=== PATIENT | male | born 1955 | race Caucasian/White ===

== ENCOUNTER → 2020-04-27 | Outpatient (CLI) | payer BC ==
[2020-04-27 10:56] LABS: African American GFR (CKD) 82.4 (60.0-200.0); Albumin 4.5 g/dL (3.80-4.90); Albumin/Globulin Ratio 1.96 (1.60-3.17); Anion Gap 6.6 mmol/L (4.00-12.00); BUN/Creat Ratio 25.45 Ratio (12.00-20.00); Calcium 9.8 mg/dL (8.7-10.3); Carbon Dioxide 30.4 mmol/L (21.6-31.8); Chol/HDL Ratio 6.24; Globulin 2.3 g/dL (1.6-3.3); Non-African American GFR(CKD) 71.1 (60.0-200.0); Potassium 4.8 mmol/L (3.5-5.5); Total Bilirubin 0.6 mg/dL (0.3-1.2); Total Protein 6.8 g/dL (6.2-8.2)
[2020-04-27 11:24] LABS: Urine Creatinine 55.3 mg/dL
[2020-04-27 14:45] LABS: Hemoglobin A1C 11.2 % (4.0-6.0)
== END | disposition home or self-care (01) ==
LOC: LABWHC1 07:58
PROVIDERS: ATTEND Internal Medicine Endocrinology, Diabetes & Metabolism
DX: E11.65 Type 2 diabetes mellitus with hyperglycemia (principal)
CPT/HCPCS: 36415; 80053; 80061; 82043; 82570; 83036; 84443

== ENCOUNTER → 2020-08-10 | Outpatient (CLI) | payer BC ==
[2020-08-10 19:27] LABS: African American GFR (CKD) 92.4 (60.0-200.0); Albumin 4.2 g/dL (3.80-4.90); Albumin/Globulin Ratio 1.56 (1.60-3.17); Calcium 9.6 mg/dL (8.7-10.3); Chol/HDL Ratio 5.6; Globulin 2.7 g/dL (1.6-3.3); LDL Cholesterol,Calculated 175.8 mg/dL (0.0-131.0); Non-African American GFR(CKD) 79.7 (60.0-200.0); Potassium 5.5 mmol/L (3.5-5.5); Total Bilirubin 1.1 mg/dL (0.3-1.2); Total Protein 6.9 g/dL (6.2-8.2); VLDL Calculation 17.2 mg/dL (5.00-40.00)
[2020-08-10 19:41] LABS: Urine Creatinine 175.2 mg/dL
[2020-08-10 21:18] LABS: Hemoglobin A1C 7.6 % (4.0-6.0)
== END | disposition home or self-care (01) ==
LOC: LABWHC1 07:22
PROVIDERS: ATTEND Internal Medicine Endocrinology, Diabetes & Metabolism
DX: E11.65 Type 2 diabetes mellitus with hyperglycemia (principal)
CPT/HCPCS: 36415; 80053; 80061; 82043; 82570; 83036; 84443

== ENCOUNTER → 2020-12-03 | Outpatient (CLI) | payer BC ==
[2020-12-03 12:49] LABS: African American GFR (CKD) 110.2 (60.0-200.0); Albumin 4.1 g/dL (3.80-4.90); Albumin/Globulin Ratio 1.78 (1.60-3.17); BUN/Creat Ratio 33.75 Ratio (12.00-20.00); Calcium 8.9 mg/dL (8.7-10.3); Chol/HDL Ratio 3.52; Globulin 2.3 g/dL (1.6-3.3); LDL Cholesterol,Calculated 128.4 mg/dL (0.0-131.0); Non-African American GFR(CKD) 95.1 (60.0-200.0); Potassium 4.6 mmol/L (3.5-5.5); Total Bilirubin 0.6 mg/dL (0.2-1.2); Total Protein 6.4 g/dL (6.2-8.2); VLDL Calculation 12.6 mg/dL (5.00-40.00)
[2020-12-03 14:47] LABS: Hemoglobin A1C 7.6 % (4.0-6.0)
[2020-12-03 17:59] LABS: Urine Creatinine 75.5 mg/dL
== END | disposition home or self-care (01) ==
LOC: LABWHC1 07:00
PROVIDERS: ATTEND Internal Medicine Endocrinology, Diabetes & Metabolism
DX: E11.65 Type 2 diabetes mellitus with hyperglycemia (principal)
CPT/HCPCS: 36415; 80053; 80061; 82043; 82570; 83036; 84443

== ENCOUNTER → 2021-10-15 | Outpatient (CLI) | payer BC ==
[2021-10-15 10:56] LABS: African American GFR (CKD) 97.8 (60.0-200.0); Albumin 4.1 g/dL (3.8-4.9); Albumin/Globulin Ratio 1.48 (1.60-3.17); Anion Gap 11.3 mmol/L (10.00-18.00); BUN/Creat Ratio 27.19 Ratio (12.00-20.00); Blood Urea Nitrogen 25.8 mg/dL (9.0-27.0); Calcium 9.3 mg/dL (8.7-10.3); Carbon Dioxide 25.1 mmol/L (20.0-27.5); Globulin 2.8 g/dL (1.6-3.3); HDL Cholesterol 54.2 mg/dL (40.00-60.00); Non-African American GFR(CKD) 84.4 (60.0-200.0); Potassium 4.2 mmol/L (3.5-5.5); Total Bilirubin 0.8 mg/dL (0.30-1.20); Total Protein 6.8 g/dL (6.2-8.2); Triglycerides 35.5 mg/dL (0.00-149.00)
[2021-10-15 11:19] LABS: Chol/HDL Ratio 3.34 Ratio
[2021-10-15 20:55] LABS: Urine Creatinine 93.3 mg/dL (39.0-259.0)
== END | disposition home or self-care (01) ==
LOC: LABWHC1 06:57
PROVIDERS: ATTEND Internal Medicine Endocrinology, Diabetes & Metabolism
DX: E11.65 Type 2 diabetes mellitus with hyperglycemia (principal)
CPT/HCPCS: 36415; 80053; 80061; 82043; 82570; 83036; 83721; 84443

== ENCOUNTER 2022-09-02 12:52 | Emergency (ER) | payer BC ==
[2022-09-02 13:07] VITALS: RESP 20
[2022-09-02] MEDS ORDERED: IBUPROFEN 600 MG TAB PO STA (13:38)
[2022-09-02] MEDS ORDERED: MORPHINE SULFATE 4 MG/ML SYRINGE IM STA (13:38)
[2022-09-02] MEDS ORDERED: BACITRACIN OINT 1 EACH PACKET TOPICAL ONE (13:46)
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
[2022-09-02] MEDS ORDERED: RX INFO: IV CONTRAST WAS GIVEN 1 EACH MISC MISCELLANE PRN (14:52)
[2022-09-02 15:33] LABS: Basophils % (A) 0 %; Eosinophils # (A) 0.1 k/uL (0-0.7); Eosinophils % (A) 1 %; HCT 40.4 % (39.0-53.0); HGB 13.4 gm/dL (13.0-17.5); Lymphocytes # (A) 0.9 k/uL (1.0-4.8); Lymphocytes % (A) 7 %; MCH 29.5 pg (25.0-35.0); MCHC 33.3 g/dL (31.0-37.0); MCV 88.8 fL (80.0-100.0); Mean Platelet Volume 7.1; Monocytes # (A) 0.6 k/uL (0-1.0); Monocytes % (A) 5 %; Neutrophils # (A) 10.7 k/uL (1.3-7.7); Neutrophils % (A) 86 %; Platelet Count 240 k/uL (150-450); RBC 4.55 m/uL (4.30-5.90); RDW 13.2 % (11.5-15.5); WBC 12.4 k/uL (3.8-10.6)
[2022-09-02 15:45] LABS: INR 1.1 (<1.2)
[2022-09-02 15:47] LABS: ALT 28 U/L (4-49); AST 29 U/L (17-59); African American GFR (CKD) >90 (>60 ml/min/1.73 sqM); Albumin 3.9 g/dL (3.5-5.0); Alkaline Phosphatase 103 U/L (38-126); Anion Gap 6 mmol/L; Blood Urea Nitrogen 19 mg/dL (9-20); Calcium 8.9 mg/dL (8.4-10.2); Carbon Dioxide 29 mmol/L (22-30); Chloride 100 mmol/L (98-107); Glucose 163 mg/dL (74-99); Non-African American GFR(CKD) >90 (>60 ml/min/1.73 sqM); Potassium 4.2 mmol/L (3.5-5.1); Sodium 135 mmol/L (137-145); Total Bilirubin 0.8 mg/dL (0.2-1.3); Total Protein 6.6 g/dL (6.3-8.2)
[2022-09-02] MEDS ORDERED: HYDROmorphone 0.5 MG/0.5 ML SYRINGE IVP STA ×2 (15:49→16:46)
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
[2022-09-02] MEDS ORDERED: ACET/COD 300 MG/30 MG STARTER PACK 6 TAB BTL PO STA (17:14)
[2022-09-02 17:55] VITALS: BP 158/87; PULSE 80; TEMP 97.8
== END 2022-09-02 17:45 | disposition home or self-care (01) ==
LOC: EC 12:52
DX: S22.32XA Fracture of one rib, left side, initial encounter for closed fracture (principal); S42.032A Displaced fracture of lateral end of left clavicle, initial encounter for closed fracture; S27.0XXA Traumatic pneumothorax, initial encounter; E11.9 Type 2 diabetes mellitus without complications; I10 Essential (primary) hypertension; Z79.84 Long term (current) use of oral hypoglycemic drugs; Z79.899 Other long term (current) drug therapy; Z87.891 Personal history of nicotine dependence; V28.41XA Electric (assisted) bicycle driver injured in noncollision transport accident in traffic accident, initial encounter; Y92.410 Unspecified street and highway as the place of occurrence of the external cause; Y93.55 Activity, bike riding
CPT/HCPCS: 36415; 80053; 85025; 85610; 73020; 71260; 99285; 96374; 96376; 96372; J2270; J1170; Q9967

== ENCOUNTER → 2022-09-07 | Outpatient (CLI) | payer BC ==
[2022-09-07 11:46] LABS: INR 0.9 (<1.2); Partial Thromboplastin Time 24.9 sec (22.0-30.0); Prothrombin Time 10.1 sec (9.0-12.0)
[2022-09-07 14:48] LABS: HGB 12.4 g/dL (13.0-17.0); MCH 28.8 pg (27.0-32.0); MCHC 31.8 g/dL (32.0-37.0); MCV 90.5 fL (80.0-97.0); Mean Platelet Volume 9.8 fL (9.5-12.2); NRBC Per 100 WBC 0 /100 WBCS (0.0-0.0); Platelet Count 276 X 10*3/uL (140-440); RBC 4.31 X 10*6/uL (4.40-5.60); RDW 13.2 % (11.5-14.5); WBC 5.95 X 10*3/uL (4.50-10.00)
[2022-09-07 15:20] LABS: Albumin 3.7 g/dL (3.8-4.9); Albumin/Globulin Ratio 1.83 (1.60-3.17); Anion Gap 6.5 mmol/L (10.00-18.00); BUN/Creat Ratio 21.61 Ratio (12.00-20.00); Blood Urea Nitrogen 16.4 mg/dL (9.0-27.0); Carbon Dioxide 28.8 mmol/L (20.0-27.5); Non-African American GFR(CKD) 95.8 (60.0-200.0); Total Bilirubin 0.5 mg/dL (0.30-1.20); Total Protein 5.8 g/dL (6.2-8.2)
== END | disposition home or self-care (01) ==
LOC: LABWHC1 10:19
PROVIDERS: ATTEND Internal Medicine
DX: Z01.812 Encounter for preprocedural laboratory examination (principal); I10 Essential (primary) hypertension; E11.9 Type 2 diabetes mellitus without complications; R94.31 Abnormal electrocardiogram [ECG] [EKG]
CPT/HCPCS: 36415; 80053; 83036; 85027; 85610; 85730; 93005

== ENCOUNTER → 2022-09-13 | Day surgery (SDC) | payer BC ==
[2022-09-12 09:02] VITALS: BMI 24.0
[~2022-09-13] MED LIST: DEXAMETHASONE SOD PHOSPHATE 4 MG/ML 1 ML VIAL IVP ONE; DEXAMETHASONE SOD PHOSPHATE 4 MG/ML 1 ML VIAL ONE; GLYCOPYRROLATE 0.2 MG/ML 2 ML VIAL ONE; LACTATED RINGERS 1,000 ML IV ONE; LIDOCAINE 2% INJ 20 MG/ML (2 ML VIAL) ONE; MIDAZOLAM 2 MG/2 ML VIAL IVP ONE; MIDAZOLAM 2 MG/2 ML VIAL ONE; NEOSTIGMINE 1 MG/ML 10 ML VIAL ONE; ONDANSETRON 4 MG/2 ML VIAL ONE; PHENYLEPHRINE-0.9% NACL SYG 1,000 MCG/10 ML SYRINGE ONE; PROPOFOL 10 MG/ML 20 ML VIAL IV ONE; ROCURONIUM 10 MG/ML (5 ML VIAL) IV ONE; ROPIVACAINE 5 MG/ML 30 ML VIAL ONE; SODIUM CHLORIDE 0.9% 100 ML with ceFAZolin 2,000 MG IV ONE; SUCCINYLCHOLINE CHLORIDE 200 MG/10 ML VIAL IV ONE; ePHEDrine 50 MG/ML 1 ML VIAL ONE; fentaNYL (PF) 50 MCG/1 ML VIAL IVP ONE; fentaNYL (PF) 50 MCG/ML 2 ML AMP ONE
[2022-09-13] MEDS: LACTATED RINGERS 1,000 ML IV ONE ×2 (11:00→14:28)
--- NOTE | 2022-09-13 14:19 | XR ---
EXAMINATION TYPE: XR chest 2V DATE OF EXAM: 09/13/2022 COMPARISON: 09/02/2022 TECHNIQUE: PA and lateral views submitted. HISTORY: Pain FINDINGS: The lungs are clear and there is no pneumothorax, pleural effusion, or focal pneumonia. Heart size normal and no overt failure. Osseous structures demonstrate hypertrophic and degenerative changes of the spine. A nipple shadow is seen bilaterally. Hyperinflation suggest COPD. There is an acute displa derrek left clavicular fracture. There is arthropathy of the AC joint. There is to be deformity of the l eft second and third fourth and fifth ribs. There is a deformity of the anterior margin of the left f ourth and fifth ribs. IMPRESSION: 1. Acute multiple left displaced rib fractures and displaced left clavicular fracture with no sizable pneumothorax. 2. COPD..
[2022-09-13 14:32] LABS: Glucose,Whole Blood 122 mg/dL (70-110)
--- NOTE | 2022-09-13 16:38 | P.ANPRN ---
Procedure Note - Anesthesia - Nerve Block Performed Left Interscalene Single Time Out Performed: Yes (1522) Date of Procedure: 09/13/22 Location of Patient: PreOp Indication: Acute Post-Operative Pain, Dx/Pain Location (Left clavicle), Requested by Surgeon Specifically requested for management of pain by DrClarice: Polo Beyer Sedation Type: Sedate with meaningful contact maintained Preparation: Sterile Prep Position: Supine Catheter: None Needle Gauge: 21 Ultrasound used to visualize needle placement: Yes Ultrasound used to observe medication spread: Yes Injectate: 0.5% Ropivacaine (see comment for volume) (30 mL +4 mg of Decadron) Blood Aspirated: No Pain Paresthesia on Injection Noted: No Resistance on Injection: Normal Image Stored and Saved: Yes Events: Uneventful and Well Tolerated
--- NOTE | 2022-09-13 18:08 | FL ---
Intraoperative/procedural fluoroscopic services were provided. Total fluoroscopy time is 7 seconds wi th a total of 4 submitted images to PACS. Please see the operative/procedural note for further detail s. DAP: 0. 2567 mGym2
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
[2022-09-13 18:49] VITALS: RESP 16; TEMP 98.5
[2022-09-13 19:45] VITALS: BP 107/68; PULSE 97
== END | disposition home or self-care (01) ==
LOC: OR 13:33
PROVIDERS: ATTEND Orthopaedic Surgery
DX: S42.022A Displaced fracture of shaft of left clavicle, initial encounter for closed fracture (principal); G89.18 Other acute postprocedural pain; V09.29XA Pedestrian injured in traffic accident involving other motor vehicles, initial encounter; I10 Essential (primary) hypertension; E11.9 Type 2 diabetes mellitus without complications; F10.20 Alcohol dependence, uncomplicated; Z87.891 Personal history of nicotine dependence; Z79.84 Long term (current) use of oral hypoglycemic drugs; Z79.899 Other long term (current) drug therapy
CPT/HCPCS: 23515; 64415; 73000; 71046; C1713; J2250; J0330; J1100; J2710; J2405; J0690; J3010 ×2; J2795; J2370; J2704; J2001

== ENCOUNTER 2022-12-22 11:28 | Inpatient (IN) | payer BC, MEDICARE ==
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
[2022-12-22 13:28] LABS: Basophils % (A) 0 %; Eosinophils # (A) 0.2 k/uL (0-0.7); Eosinophils % (A) 2 %; HCT 40.8 % (39.0-53.0); Lymphocytes # (A) 1.3 k/uL (1.0-4.8); Lymphocytes % (A) 11 %; MCH 29.3 pg (25.0-35.0); MCHC 31.9 g/dL (31.0-37.0); Mean Platelet Volume 6.9; Monocytes # (A) 0.6 k/uL (0-1.0); Monocytes % (A) 5 %; Neutrophils # (A) 9.4 k/uL (1.3-7.7); Neutrophils % (A) 81 %; Platelet Count 323 k/uL (150-450); RBC 4.44 m/uL (4.30-5.90); RDW 12.9 % (11.5-15.5); WBC 11.6 k/uL (3.8-10.6)
[2022-12-22 13:48] LABS: ALT 23 U/L (4-49); AST 24 U/L (17-59); African American GFR (CKD) >90 (>60 ml/min/1.73 sqM); Albumin 3.8 g/dL (3.5-5.0); Alkaline Phosphatase 118 U/L (38-126); Anion Gap 8 mmol/L; Blood Urea Nitrogen 19 mg/dL (9-20); Calcium 9.4 mg/dL (8.4-10.2); Carbon Dioxide 28 mmol/L (22-30); Chloride 100 mmol/L (98-107); Glucose 250 mg/dL (74-99); Non-African American GFR(CKD) >90 (>60 ml/min/1.73 sqM); Potassium 4.3 mmol/L (3.5-5.1); Sodium 136 mmol/L (137-145); Total Bilirubin 0.9 mg/dL (0.2-1.3); Total Protein 6.9 g/dL (6.3-8.2)
--- NOTE | 2022-12-22 14:55 | XR ---
EXAMINATION TYPE: XR foot complete 3 views LT DATE OF EXAM: 12/22/2022 Comparison: None Clinical History: 67-year-old male swelling, discoloration, pain second toe Findings: There is osteolysis involving the distal phalanx of the second toe. Prominent osteopenia and possible additional areas of osteolysis involving the head and distal shaft of the second middle phalanx. Mil d marginal spurring at the first MTP joint. Moderate sized plantar heel spur. Dorsal mid foot degener ative spurring particularly along the second through fourth TMT joints. Prominent dorsal mid to foref oot soft tissue swelling. Vascular calcifications. Impression: Osteolysis involving the middle and distal phalanx of the second toe. Correlate for osteomyelitis.
[2022-12-22] MEDS ORDERED: VANCOMYCIN IV PER PHARMACY 1 EACH MISC MISCELLANE PRN (15:19)
[2022-12-22] MEDS ORDERED: CEFEPIME 2 GM in SODIUM CHLORIDE 0.9% 100 ML IVPB STA (15:20)
[2022-12-22] MEDS ORDERED: VANCOMYCIN 1,500 MG in SODIUM CHLORIDE 0.9% 500 ML 500 ML IVPB STA (15:23)
[2022-12-22] MEDS ORDERED: SODIUM CHLORIDE 0.9% 1,000 ML IV ONE (15:28)
[2022-12-22] MEDS ORDERED: HYDROmorphone 0.5 MG/0.5 ML SYRINGE IVP STA (16:44)
[2022-12-22] MEDS ORDERED: KETOROLAC 15 MG/ML 1 ML VIAL IVP STA (16:45)
[2022-12-22 18:32] LABS: Glucose,Whole Blood 188 mg/dL (70-110)
[2022-12-22] MEDS ORDERED: DEXTROSE 50% SYRINGE 50 ML IVP PRN ×2 (19:50)
[2022-12-22] MEDS: HYDROcodone/APAP 10-325MG 1 EACH TAB PO PRN (20:43)
[2022-12-22] MEDS: INSULIN ASPART (NovoLOG) 100 UNIT/ML VIAL SQ SCH (20:49)
[2022-12-22 20:52] LABS: Glucose,Whole Blood 138 mg/dL (70-110)
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
[2022-12-23] MEDS: CEFEPIME 2 GM in SODIUM CHLORIDE 0.9% 100 ML IVPB SCH ×3 (01:02→17:08)
[2022-12-23 05:27] LABS: African American GFR (CKD) >90 (>60 ml/min/1.73 sqM); Anion Gap 6 mmol/L; Blood Urea Nitrogen 24 mg/dL (9-20); Calcium 8.7 mg/dL (8.4-10.2); Carbon Dioxide 26 mmol/L (22-30); Chloride 104 mmol/L (98-107); Glucose 114 mg/dL (74-99); Non-African American GFR(CKD) >90 (>60 ml/min/1.73 sqM); Potassium 4.7 mmol/L (3.5-5.1); Sodium 136 mmol/L (137-145)
[2022-12-23] MEDS: VANCOMYCIN 1,500 MG in SODIUM CHLORIDE 0.9% 500 ML 500 ML IVPB SCH ×2 (06:30→21:56)
[2022-12-23 07:11] LABS: Glucose,Whole Blood 127 mg/dL (70-110)
[2022-12-23] MEDS: INSULIN ASPART (NovoLOG) 100 UNIT/ML VIAL SQ SCH ×4 (07:32→21:55)
[2022-12-23 08:46] LABS: Basophils # (A) 0.04 X 10*3/uL (0.00-0.10); Basophils % (A) 0.6 %; Eosinophils # (A) 0.44 X 10*3/uL (0.04-0.35); Eosinophils % (A) 6.1 %; HCT 35.7 % (39.6-50.0); HGB 11.7 d/dL (13.0-17.0); Lymphocytes # (A) 1.55 X 10*3/uL (0.90-5.00); Lymphocytes % (A) 21.5 %; MCH 29.3 pg (27.0-32.0); MCHC 32.8 d/dL (32.0-37.0); MCV 89.3 FL (80.0-97.0); Mean Platelet Volume 9.3 FL (9.5-12.2); Monocytes # (A) 0.81 X 10*3/uL (0.20-1.00); Monocytes % (A) 11.2 %; NRBC Per 100 WBC 0 X 10*3/uL (0.00-0.01); Neutrophils # (A) 4.35 X 10*3/uL (1.80-7.70); Neutrophils % (A) 60.2 %; Platelet Count 308 X 10*3/uL (140-440); WBC 7.22 X 10*3/uL (4.50-10.00)
[2022-12-23] MEDS: LOSARTAN 50 MG TAB PO SCH (08:51)
[2022-12-23] MEDS: metFORMIN 500 MG TAB PO SCH (08:51)
[2022-12-23 09:39] LABS: Erythrocyte Sedimentation Rate 26 mm/Hr (0-20)
[2022-12-23 11:46] LABS: Glucose,Whole Blood 106 mg/dL (70-110)
[2022-12-23] MEDS: ALPRAZolam 0.25 MG TAB PO PRN ×2 (12:35→22:07)
[2022-12-23 15:31] VITALS: BMI 24.8
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
--- NOTE | 2022-12-23 16:47 | P.PN ---
Subjective Progress Note Date: 12/23/22 Principal diagnosis: Left second toe osteomyelitis Patient is a 67-year-old male with a past medical history of any for diabetes mellitus and hypertension previous history of smoking patient presenting the hospital with increasing pain and swelling to his left second toe which has been going on for a couple of months with recent worsening patient did have an abnormal x-ray concerning for bony destruction to the middle and distal phalanx concerning for Osteomyelitis. On today's evaluation that is 12/23/2022, the patient remains to be afebrile, the patient is breathing comfortably , the patient denies chest pain and no significant cough, the patient denies nausea and vomiting no abdominal pain and no diarrhea, the patient pain and swelling to the left second toe has decreased in intensity Patient did have a white count of 7.22 creatinine 0.84 sed rate of 26 Objective - Vital Signs Vital signs: Vital Signs Temp 98.3 F 12/23/22 11:51 Pulse 103 H 12/23/22 11:51 Resp 20 12/23/22 11:51 BP 136/73 12/23/22 11:51 Pulse Ox 93 L 12/23/22 11:51 FiO2 Intake & Output 12/22/22 12/23/22 12/23/22 18:59 06:59 18:59 Intake Total 500 Balance 500 Weight 78.471 kg 78.471 kg Intake: Oral 500 Other: Voiding Method Toilet Toilet # Voids 2 - Exam GENERAL DESCRIPTION: An elderly male lying in bed in no distress RESPIRATORY SYSTEM: Unlabored breathing , decreased breath sounds at bases HEART: S1 S2 regular rate and rhythm , ABDOMEN: Soft , no tenderness EXTREMITIES: Left second toe swelling redness has improved no drainage - Labs CBC & Chem 7: 12/23/22 05:03 12/23/22 05:03 Labs: Abnormal Lab Results - Last 24 Hours (Table) 12/22/22 12/22/22 12/22/22 Range/Units 12:55 12:55 18:29 WBC 11.6 H (3.8-10.6) k/uL RBC (4.40-5.60) X 10*6/uL Hgb (13.0-17.0) d/dL Hct (39.6-50.0) % MPV (9.5-12.2) FL Neutrophils # 9.4 H (1.3-7.7) k/uL Eosinophils # (0.04-0.35) X 10*3/uL ESR (0-20) mm/Hr Sodium 136 L (137-145) mmol/L BUN (9-20) mg/dL Glucose 250 H (74-99) mg/dL POC Glucose (mg/dL) 188 H (70-110) mg/dL C-Reactive Protein 3.0 H (<1.0) mg/dL 12/22/22 12/23/22 12/23/22 Range/Units 20:47 05:03 05:03 WBC (3.8-10.6) k/uL RBC 4.00 L (4.40-5.60) X 10*6/uL Hgb 11.7 L (13.0-17.0) d/dL Hct 35.7 L (39.6-50.0) % MPV 9.3 L (9.5-12.2) FL Neutrophils # (1.3-7.7) k/uL Eosinophils # 0.44 H (0.04-0.35) X 10*3/uL ESR 26 H (0-20) mm/Hr Sodium 136 L (137-145) mmol/L BUN 24 H (9-20) mg/dL Glucose 114 H (74-99) mg/dL POC Glucose (mg/dL) 138 H (70-110) mg/dL C-Reactive Protein (<1.0) mg/dL 12/23/22 Range/Units 07:08 WBC (3.8-10.6) k/uL RBC (4.40-5.60) X 10*6/uL Hgb (13.0-17.0) d/dL Hct (39.6-50.0) % MPV (9.5-12.2) FL Neutrophils # (1.3-7.7) k/uL Eosinophils # (0.04-0.35) X 10*3/uL ESR (0-20) mm/Hr Sodium (137-145) mmol/L BUN (9-20) mg/dL Glucose (74-99) mg/dL POC Glucose (mg/dL) 127 H (70-110) mg/dL C-Reactive Protein (<1.0) mg/dL Assessment and Plan (1) Toe osteomyelitis, left Current Visit: Yes Status: Acute Code(s): M86.9 - OSTEOMYELITIS, UNSPECIFIED SNOMED Code(s): 429810025 Plan: 1patient presented to hospital with increasing pain swelling redness and deformity of his left second toe with a previous history of trauma did have abnormal x-ray concerning for osteomyelitis 2Discussed with vascular surgery for debridement and deep culture that'll help determine discharge antibiotics 3-patient to continue with cefepime and vancomycin while waiting for the culture to finalize Dictation was produced using [employer] dictation software. please excuse any grammatical, word or spelling errors. Time with Patient: Less than 30
[2022-12-23 17:07] LABS: Glucose,Whole Blood 138 mg/dL (70-110)
[2022-12-23 20:30] LABS: Glucose,Whole Blood 158 mg/dL (70-110)
[2022-12-24] MEDS: CEFEPIME 2 GM in SODIUM CHLORIDE 0.9% 100 ML IVPB SCH ×4 (01:49→17:46)
--- NOTE | 2022-12-24 05:43 | P.PN ---
Subjective Progress Note Date: 12/23/22 Patient is a 67-year-old male with a known history of hypertension, diabetes type 2 [id number] presents to ER with complaints of swelling and pain in his left second toe and also surrounding redness which is worsening for the past 2 to 3 days. Patient states that he had an injury about a year ago which led to deformity to his left second toe. Pain is sharp 10 out of 10 in severity. Denies any purulent discharge. Patient has been afebrile at home. Denies any subjective fevers. No complaints of chest pain or shortness of breath. No nausea vomiting or abdominal pain or diarrhea. Foot x-ray in the ER showed osteolysis involving the medial and distal phalanx of the second toe. Correlate for osteomyelitis. Laboratory data showed WBC 11.6, hemoglobin 13.0 and platelets 323. Sodium 136, potassium 4.3 chloride 100 bicarb is 28 BUN 19 and creatinine 0.77 and blood sugar 250. CRP 3.0 liver enzymes are not elevated. 12/23/2022 Patient is seen in follow-up today reports pain of the left second toe has gone down in intensity there is no drainage but some swelling left. Patient main tained on antibiotics in the form of cefepime and vancomycin with infectious disease following. Vascular surgery consulted in hopes for deep cultures with debridement and currently pending at this time. Patient is afebrile with no white count and other labs reviewed and within normal limits. Blood sugars controlled and will continue Accu-Cheks before meals and at bedtime and sliding scale. Patient continues to request when he can go home and is having increased anxiety having stay here. Will add low-dose Xanax as needed. Review of systems: Constitutional: No reports of fatigue, fever, or chills Cardiovascular: No reports of chest pain or palpitations Respiratory: No reports of shortness of breath or cough GI: No reports of nausea, vomiting, or diarrhea : No reports of dysuria or retention Neurovascular: No reports of weakness or numbness, reports some left-sided swelling has gone down in no drainage noted All medications have been reviewed PHYSICAL EXAMINATION: Patient is lying in the bed comfortably, no acute distress, awake alert and oriented.. Thin built, elderly appearing male HEENT: Normocephalic. Neck is supple. Pupils reactive. Nostrils clear. Oral cavity is moist. Neck reveals no JVD, carotid bruits, or thyromegaly. CHEST EXAMINATION: Trachea is central. Symmetrical expansion. Lung cherry clear to auscultation and percussion. CARDIAC: Normal S1, S2 with no gallops. No murmurs ABDOMEN: Soft. Bowel sounds present. Nontender. No organomegaly. No abdominal bruits. Extremities: reveal no edema. No clubbing or cyanosis. Swelling of the left second toe with small wound at the tip, no drainage. Redness and swelling has improved significantly on the dorsum with some minimal swelling at the toe Neurologically awake, alert, oriented x3 with well-coordinated movements. No focal deficits noted Skin: No rash Psychiatric: Cooperative. Non-suicidal, Musculoskeletal: No joint swelling or deformity. Normal range of motion. Assessment: Left second toe infection with pain and swelling and surrounding redness/cellulitis. Concerning for osteomyelitis as per foot x-ray. Prior history of injury to the left second toe about a year ago Hyperglycemia with uncontrolled diabetes type 2 Hypertension Prior history of smoking DVT prophylaxis with heparin subcu GI prophylaxis Full code Plan: Patient will be continued on IV antibiotics in the form of vancomycin and cefepime. Infectious disease following recommending vascular surgery consult which was placed in pending at this time for possible debridement with deep tissue cultures to determine discharge antibiotics Continue with pain management. Continue with Accu-Cheks before meals and at bedtime along with sliding scale, hemoglobin A1c is 7.2 Home medications reviewed resumed Follow-up culture reports and await vascular surgery consult Patient is extremely anxious to go home and have added low-dose anxiety medications as needed and discussed with the patient the importance of staying and receiving IV antibiotics and continuing treatment plan. Patient is high risk for leaving AGAINST MEDICAL ADVICE as patient has asked multiple times to go home The impression and plan of care has been dictated by Shu Luz, Nurse Practitioner as directed. Dr. Holley MD I have performed a history and examination and MDM of this patient, discussed the same with the dictator, and agree with the dictator's assessment and plan as written ,documented as a scribe. Based on total visit time, I have performed more than 50% of the visit. Objective - Vital Signs Vital signs: Vital Signs Temp 98.9 F 12/23/22 07:30 Pulse 87 12/23/22 07:30 Resp 20 12/23/22 07:30 BP 105/61 09/15/23 07:30 Pulse Ox 93 L 12/23/22 07:30 FiO2 Intake & Output 12/22/22 12/23/22 12/23/22 18:59 06:59 18:59 Intake Total 500 Balance 500 Weight 78.471 kg Intake: Oral 500 Other: Voiding Method Toilet # Voids 2 - Labs CBC & Chem 7: 12/23/22 05:03 12/23/22 05:03 Labs: Abnormal Lab Results - Last 24 Hours (Table) 12/22/22 12/22/22 12/22/22 Range/Units 12:55 12:55 18:29 WBC 11.6 H (3.8-10.6) k/uL RBC (4.40-5.60) X 10*6/uL Hgb (13.0-17.0) d/dL Hct (39.6-50.0) % MPV (9.5-12.2) FL Neutrophils # 9.4 H (1.3-7.7) k/uL Eosinophils # (0.04-0.35) X 10*3/uL Sodium 136 L (137-145) mmol/L BUN (9-20) mg/dL Glucose 250 H (74-99) mg/dL POC Glucose (mg/dL) 188 H (70-110) mg/dL C-Reactive Protein 3.0 H (<1.0) mg/dL 12/22/22 12/23/22 12/23/22 Range/Units 20:47 05:03 05:03 WBC (3.8-10.6) k/uL RBC 4.00 L (4.40-5.60) X 10*6/uL Hgb 11.7 L (13.0-17.0) d/dL Hct 35.7 L (39.6-50.0) % MPV 9.3 L (9.5-12.2) FL Neutrophils # (1.3-7.7) k/uL Eosinophils # 0.44 H (0.04-0.35) X 10*3/uL Sodium 136 L (137-145) mmol/L BUN 24 H (9-20) mg/dL Glucose 114 H (74-99) mg/dL POC Glucose (mg/dL) 138 H (70-110) mg/dL C-Reactive Protein (<1.0) mg/dL 12/23/22 Range/Units 07:08 WBC (3.8-10.6) k/uL RBC (4.40-5.60) X 10*6/uL Hgb (13.0-17.0) d/dL Hct (39.6-50.0) % MPV (9.5-12.2) FL Neutrophils # (1.3-7.7) k/uL Eosinophils # (0.04-0.35) X 10*3/uL Sodium (137-145) mmol/L BUN (9-20) mg/dL Glucose (74-99) mg/dL POC Glucose (mg/dL) 127 H (70-110) mg/dL C-Reactive Protein (<1.0) mg/dL
[2022-12-24] MEDS: VANCOMYCIN 1,500 MG in SODIUM CHLORIDE 0.9% 500 ML 500 ML IVPB SCH ×2 (06:31→17:46)
[2022-12-24 06:51] LABS: African American GFR (CKD) >90 (>60 ml/min/1.73 sqM); Non-African American GFR(CKD) >90 (>60 ml/min/1.73 sqM)
[2022-12-24 07:43] LABS: Glucose,Whole Blood 136 mg/dL (70-110)
[2022-12-24] MEDS: INSULIN ASPART (NovoLOG) 100 UNIT/ML VIAL SQ SCH ×4 (07:48→19:53)
[2022-12-24] MEDS: LOSARTAN 50 MG TAB PO SCH (08:24)
[2022-12-24] MEDS: metFORMIN 500 MG TAB PO SCH (08:24)
[2022-12-24] MEDS ORDERED: LIDOCAINE 1% INJ 10MG/ML (20 ML MDV) SQ STA (11:59)
[2022-12-24 12:24] LABS: Glucose,Whole Blood 111 mg/dL (70-110)
--- NOTE | 2022-12-24 13:07 | P.PN ---
Subjective Progress Note Date: 12/24/22 Principal diagnosis: Left second toe osteomyelitis Patient is a 67-year-old male with a past medical history of any for diabetes mellitus and hypertension previous history of smoking patient presenting the hospital with increasing pain and swelling to his left second toe which has been going on for a couple of months with recent worsening patient did have an abnormal x-ray concerning for bony destruction to the middle and distal phalanx concerning for Osteomyelitis. On today's evaluation that is 12/24/2022, the patient denies any fever or any chills, the patient is breathing comfortably , the patient denies chest pain and no significant cough, the patient denies nausea and vomiting no abdominal pain and no diarrhea,a, the patient pain and swelling to the left second toe has decreased in intensity, patient has been insisting on going home Patient did have a white count of 7.22 as of 12/23/2022, creatinine is 0.67, blood cultures so far negative Objective - Vital Signs Vital signs: Vital Signs Temp 98.4 F 12/24/22 07:40 Pulse 79 12/24/22 07:40 Resp 18 12/24/22 07:40 BP 119/61 12/24/22 07:40 Pulse Ox 97 12/24/22 07:40 FiO2 Intake & Output 12/23/22 12/24/22 12/24/22 18:59 06:59 18:59 Intake Total 500 Balance 500 Weight 78.471 kg Intake: Oral 500 Other: Voiding Method Toilet Toilet # Voids 2 2 - Exam GENERAL DESCRIPTION: An elderly male lying in bed in no distress RESPIRATORY SYSTEM: Unlabored breathing , decreased breath sounds at bases HEART: S1 S2 regular rate and rhythm , ABDOMEN: Soft , no tenderness EXTREMITIES: Left second toe swelling redness has improved no drainage - Labs CBC & Chem 7: 12/23/22 05:03 12/24/22 05:42 Labs: Abnormal Lab Results - Last 24 Hours (Table) 12/23/22 12/23/22 12/23/22 Range/Units 05:03 17:06 20:20 POC Glucose (mg/dL) 138 H 158 H (70-110) mg/dL Hemoglobin A1c 7.2 H (<=6.0) % 12/24/22 12/24/22 Range/Units 07:41 12:22 POC Glucose (mg/dL) 136 H 111 H (70-110) mg/dL Hemoglobin A1c (<=6.0) % Microbiology - Last 24 Hours (Table) 12/22/22 13:10 Blood Culture - Preliminary Blood 12/22/22 12:55 Blood Culture - Preliminary Blood Assessment and Plan (1) Toe osteomyelitis, left Current Visit: Yes Status: Acute Code(s): M86.9 - OSTEOMYELITIS, UNSPECIFIED SNOMED Code(s): 998634898 Plan: 1patient presented to hospital with increasing pain swelling redness and deformity of his left second toe with a previous history of trauma did have abnormal x-ray concerning for osteomyelitis 2Discussed again with vascular surgery need for debridement and deep cultures that would help determine his discharge antibiotics 3-patient to continue with cefepime and vancomycin while waiting for the culture to finalize and monitor clinical course closely Dictation was produced using [employer] dictation software. please excuse any grammatical, word or spelling errors. Time with Patient: Less than 30
[2022-12-24] MEDS: HYDROcodone/APAP 10-325MG 1 EACH TAB PO PRN (14:29)
--- NOTE | 2022-12-24 15:55 | P.PCN ---
Description of Procedure: Preop diagnoses is left foot second toe involving the distal phalanx there is a scab formation noted with some fluctuation Postop the same measurement post debridement is half CM by half CM by 0.5 cm Procedure left foot was prepped and 1% lidocaine were infiltrated using knife we excise the wound with knife down to separate his tissue some drainage was noted tibial just tissue was removed sent for deep culture aerobic and anaerobic wound was irrigated with saline medihoney gel applied to the wound dressing applied patient are to the procedure well plan is change dressing daily with medihoney gel patient is on antibiotic under care of infectious disease
[2022-12-24 17:32] LABS: Glucose,Whole Blood 115 mg/dL (70-110)
[2022-12-24 19:39] LABS: Glucose,Whole Blood 177 mg/dL (70-110)
[2022-12-24] MEDS: ALPRAZolam 0.25 MG TAB PO PRN (21:19)
[2022-12-25] MEDS: CEFEPIME 2 GM in SODIUM CHLORIDE 0.9% 100 ML IVPB SCH ×3 (00:12→17:33)
[2022-12-25] MEDS: HYDROcodone/APAP 10-325MG 1 EACH TAB PO PRN ×2 (01:35→14:29)
[2022-12-25] MEDS ORDERED: VANCOMYCIN TROUGH DUE 1 EACH MISC MISCELLANE ONE (05:00)
[2022-12-25] MEDS: VANCOMYCIN 1,500 MG in SODIUM CHLORIDE 0.9% 500 ML 500 ML IVPB SCH ×3 (05:31→21:36)
[2022-12-25 06:39] LABS: African American GFR (CKD) >90 (>60 ml/min/1.73 sqM); Anion Gap 4 mmol/L; Blood Urea Nitrogen 21 mg/dL (9-20); Calcium 8.7 mg/dL (8.4-10.2); Carbon Dioxide 25 mmol/L (22-30); Chloride 108 mmol/L (98-107); Glucose 117 mg/dL (74-99); Non-African American GFR(CKD) >90 (>60 ml/min/1.73 sqM); Potassium 4.6 mmol/L (3.5-5.1); Sodium 137 mmol/L (137-145)
[2022-12-25] MEDS: INSULIN ASPART (NovoLOG) 100 UNIT/ML VIAL SQ SCH ×4 (07:01→21:35)
[2022-12-25 07:42] LABS: Glucose,Whole Blood 107 mg/dL (70-110)
[2022-12-25] MEDS: LOSARTAN 50 MG TAB PO SCH (08:29)
[2022-12-25] MEDS: metFORMIN 500 MG TAB PO SCH (08:29)
[2022-12-25 10:26] LABS: Basophils # (A) 0.05 X 10*3/uL (0.00-0.10); Basophils % (A) 0.6 %; Eosinophils # (A) 0.48 X 10*3/uL (0.04-0.35); HGB 12.3 d/dL (13.0-17.0); Lymphocytes # (A) 2.16 X 10*3/uL (0.90-5.00); MCH 28.5 pg (27.0-32.0); MCHC 31.5 d/dL (32.0-37.0); MCV 90.5 FL (80.0-97.0); Mean Platelet Volume 9.6 FL (9.5-12.2); Monocytes # (A) 0.95 X 10*3/uL (0.20-1.00); Monocytes % (A) 11.9 %; NRBC Per 100 WBC 0 X 10*3/uL (0.00-0.01); Neutrophils # (A) 4.34 X 10*3/uL (1.80-7.70); Neutrophils % (A) 54.2 %; Platelet Count 314 X 10*3/uL (140-440); RBC 4.31 X 10*6/uL (4.40-5.60); RDW 12.8 % (11.5-14.5)
--- NOTE | 2022-12-25 11:43 | P.PN ---
Subjective Progress Note Date: 12/25/22 Principal diagnosis: Left second toe osteomyelitis Patient is a 67-year-old male with a past medical history of any for diabetes mellitus and hypertension previous history of smoking patient presenting the hospital with increasing pain and swelling to his left second toe which has been going on for a couple of months with recent worsening patient did have an abnormal x-ray concerning for bony destruction to the middle and distal phalanx concerning for Osteomyelitis. Patient did have a bedside debridement of the left second toe and cultures completed on 12/24/2022 On today's evaluation that is 12/25/2022, the patient remains to be afebrile, the patient is breathing comfortably , the patient denies chest pain or cough , the patient denies nausea or vomiting , patient denies abdominal pain and no diarrhea has been reported, the patient pain and swelling to the left second toe has decreased in intensity, no new symptoms Patient did have a white count of 8.0, creatinine 0.6 0 vancomycin trough of 12.2 blood culture negative Objective - Vital Signs Vital signs: Vital Signs Temp 98.1 F 12/25/22 07:48 Pulse 73 12/25/22 07:48 Resp 16 12/25/22 07:48 BP 131/68 12/25/22 07:48 Pulse Ox 99 12/25/22 07:48 FiO2 Intake & Output 12/24/22 12/25/22 12/25/22 18:59 06:59 18:59 Intake Total 600 475 Balance 600 475 Intake: Intake, IV Titration 600 Amount Cefepime 2 gm In Sodium 100 Chloride 0.9% 100 ml @ 25 mls/hr IVPB Q8HR [facility] Rx# :[id number] Vancomycin 1,500 mg In 500 Sodium Chloride 0.9% 500 ml 500 ml @ 167 mls/hr IVPB Q12H [facility] Rx#: [id number] Oral 475 Other: Voiding Method Toilet # Voids 2 2 - Exam GENERAL DESCRIPTION: An elderly male lying in bed in no distress RESPIRATORY SYSTEM: Unlabored breathing , decreased breath sounds at bases HEART: S1 S2 regular rate and rhythm , ABDOMEN: Soft , no tenderness EXTREMITIES: Left second toe swelling redness has improved no drainage - Labs CBC & Chem 7: 12/25/22 05:25 12/25/22 05:25 Labs: Abnormal Lab Results - Last 24 Hours (Table) 0912/24/22 12/24/22 Range/Units 12:22 17:30 19:36 RBC (4.40-5.60) X 10*6/uL Hgb (13.0-17.0) d/dL Hct (39.6-50.0) % MCHC (32.0-37.0) d/dL Eosinophils # (0.04-0.35) X 10*3/uL Chloride (98-107) mmol/L BUN (9-20) mg/dL Creatinine (0.66-1.25) mg/dL Glucose (74-99) mg/dL POC Glucose (mg/dL) 111 H 115 H 177 H (70-110) mg/dL 12/25/22 12/25/22 Range/Units 05:25 05:25 RBC 4.31 L (4.40-5.60) X 10*6/uL Hgb 12.3 L (13.0-17.0) d/dL Hct 39.0 L (39.6-50.0) % MCHC 31.5 L (32.0-37.0) d/dL Eosinophils # 0.48 H (0.04-0.35) X 10*3/uL Chloride 108 H (98-107) mmol/L BUN 21 H (9-20) mg/dL Creatinine 0.60 L (0.66-1.25) mg/dL Glucose 117 H (74-99) mg/dL POC Glucose (mg/dL) (70-110) mg/dL Microbiology - Last 24 Hours (Table) 12/22/22 13:10 Blood Culture - Preliminary Blood 12/22/22 12:55 Blood Culture - Preliminary Blood Assessment and Plan (1) Toe osteomyelitis, left Current Visit: Yes Status: Acute Code(s): M86.9 - OSTEOMYELITIS, UNSPECIFIED SNOMED Code(s): 195574007 Plan: 1patient presented to hospital with increasing pain swelling redness and deformity of his left second toe with a previous history of trauma did have abnormal x-ray concerning for osteomyelitis 2patient is status post vascular surgery reevaluation along with debridement and deep cultures which are currently pending 3-patient will continue with cefepime and vancomycin while waiting for the culture to finalize to determine his discharge antibiotics Dictation was produced using [employer] dictation software. please excuse any grammatical, word or spelling errors. Time with Patient: Less than 30
[2022-12-25 12:53] LABS: Glucose,Whole Blood 102 mg/dL (70-110)
[2022-12-25 17:24] LABS: Glucose,Whole Blood 143 mg/dL (70-110)
[2022-12-25 20:32] LABS: Glucose,Whole Blood 154 mg/dL (70-110)
[2022-12-25] MEDS: ALPRAZolam 0.25 MG TAB PO PRN (21:34)
[2022-12-26] MEDS: CEFEPIME 2 GM in SODIUM CHLORIDE 0.9% 100 ML IVPB SCH ×3 (01:04→17:43)
--- NOTE | 2022-12-26 03:00 | P.PN ---
Subjective Progress Note Date: 12/24/22 Patient is a 67-year-old male with a known history of hypertension, diabetes type 2 [id number] presents to ER with complaints of swelling and pain in his left second toe and also surrounding redness which is worsening for the past 2 to 3 days. Patient states that he had an injury about a year ago which led to deformity to his left second toe. Pain is sharp 10 out of 10 in severity. Denies any purulent discharge. Patient has been afebrile at home. Denies any subjective fevers. No complaints of chest pain or shortness of breath. No nausea vomiting or abdominal pain or diarrhea. Foot x-ray in the ER showed osteolysis involving the medial and distal phalanx of the second toe. Correlate for osteomyelitis. Laboratory data showed WBC 11.6, hemoglobin 13.0 and platelets 323. Sodium 136, potassium 4.3 chloride 100 bicarb is 28 BUN 19 and creatinine 0.77 and blood sugar 250. CRP 3.0 liver enzymes are not elevated. 12/23/2022 Patient is seen in follow-up today reports pain of the left second toe has gone down in intensity there is no drainage but some swelling left. Patient mainta ined on antibiotics in the form of cefepime and vancomycin with infectious disease following. Vascular surgery consulted in hopes for deep cultures with debridement and currently pending at this time. Patient is afebrile with no white count and other labs reviewed and within normal limits. Blood sugars controlled and will continue Accu-Cheks before meals and at bedtime and sliding scale. Patient continues to request when he can go home and is having increased anxiety having stay here. Will add low-dose Xanax as needed. Review of systems: Constitutional: No reports of fatigue, fever, or chills Cardiovascular: No reports of chest pain or palpitations Respiratory: No reports of shortness of breath or cough GI: No reports of nausea, vomiting, or diarrhea : No reports of dysuria or retention Neurovascular: No reports of weakness or numbness, reports some left-sided swelling has gone down in no drainage noted All medications have been reviewed PHYSICAL EXAMINATION: Patient is lying in the bed comfortably, no acute distress, awake alert and oriented.. Thin built, elderly appearing male HEENT: Normocephalic. Neck is supple. Pupils reactive. Nostrils clear. Oral cavity is moist. Neck reveals no JVD, carotid bruits, or thyromegaly. CHEST EXAMINATION: Trachea is central. Symmetrical expansion. Lung cherry clear to auscultation and percussion. CARDIAC: Normal S1, S2 with no gallops. No murmurs ABDOMEN: Soft. Bowel sounds present. Nontender. No organomegaly. No abdominal bruits. Extremities: reveal no edema. No clubbing or cyanosis. Swelling of the left second toe with small wound at the tip, no drainage. Redness and swelling has improved significantly on the dorsum with some minimal swelling at the toe Neurologically awake, alert, oriented x3 with well-coordinated movements. No focal deficits noted Skin: No rash Psychiatric: Cooperative. Non-suicidal, Musculoskeletal: No joint swelling or deformity. Normal range of motion. Assessment: Left second toe infection with pain and swelling and surrounding redness/cellulitis. Concerning for osteomyelitis as per foot x-ray. Prior history of injury to the left second toe about a year ago Hyperglycemia with uncontrolled diabetes type 2 Hypertension Prior history of smoking DVT prophylaxis with heparin subcu GI prophylaxis Full code Plan: Patient will be continued on IV antibiotics in the form of vancomycin and cefepime. Infectious disease following recommending vascular surgery consult which was placed in pending at this time for possible debridement with deep tissue cultures to determine discharge antibiotics Continue with pain management. Continue with Accu-Cheks before meals and at bedtime along with sliding scale, hemoglobin A1c is 7.2 Home medications reviewed resumed Follow-up culture reports and await vascular surgery consult Patient is extremely anxious to go home and have added low-dose anxiety medications as needed and discussed with the patient the importance of staying and receiving IV antibiotics and continuing treatment plan. Patient is high risk for leaving AGAINST MEDICAL ADVICE as patient has asked multiple times to go home Objective - Vital Signs Vital signs: Vital Signs Temp 98.6 F 12/24/22 14:36 Pulse 78 12/24/22 14:36 Resp 16 12/24/22 14:36 BP 130/74 12/24/22 14:36 Pulse Ox 97 12/24/22 14:36 FiO2 Intake & Output 12/24/22 12/24/22 12/25/22 06:59 18:59 06:59 Intake Total 500 600 Balance 500 600 Intake: Intake, IV Titration 600 Amount Cefepime 2 gm In Sodium 100 Chloride 0.9% 100 ml @ 25 mls/hr IVPB Q8HR [facility] Rx# :[id number] Vancomycin 1,500 mg In 500 Sodium Chloride 0.9% 500 ml 500 ml @ 167 mls/hr IVPB Q12H [facility] Rx#: [id number] Oral 500 Other: Voiding Method Toilet # Voids 2 2 - Labs CBC & Chem 7: 12/25/22 05:25 12/25/22 05:25 Labs: Abnormal Lab Results - Last 24 Hours (Table) 12/23/22 12/23/22 12/24/22 Range/Units 05:03 20:20 07:41 POC Glucose (mg/dL) 158 H 136 H (70-110) mg/dL Hemoglobin A1c 7.2 H (<=6.0) % 12/24/22 12/24/22 Range/Units 12:22 17:30 POC Glucose (mg/dL) 111 H 115 H (70-110) mg/dL Hemoglobin A1c (<=6.0) % Microbiology - Last 24 Hours (Table) 12/22/22 13:10 Blood Culture - Preliminary Blood 12/22/22 12:55 Blood Culture - Preliminary Blood
--- NOTE | 2022-12-26 03:00 | P.PN ---
Subjective Progress Note Date: 12/25/22 Patient is a 67-year-old male with a known history of hypertension, diabetes type 2 [id number] presents to ER with complaints of swelling and pain in his left second toe and also surrounding redness which is worsening for the past 2 to 3 days. Patient states that he had an injury about a year ago which led to deformity to his left second toe. Pain is sharp 10 out of 10 in severity. Denies any purulent discharge. Patient has been afebrile at home. Denies any subjective fevers. No complaints of chest pain or shortness of breath. No nausea vomiting or abdominal pain or diarrhea. Foot x-ray in the ER showed osteolysis involving the medial and distal phalanx of the second toe. Correlate for osteomyelitis. Laboratory data showed WBC 11.6, hemoglobin 13.0 and platelets 323. Sodium 136, potassium 4.3 chloride 100 bicarb is 28 BUN 19 and creatinine 0.77 and blood sugar 250. CRP 3.0 liver enzymes are not elevated. 12/23/2022 Patient is seen in follow-up today reports pain of the left second toe has gone down in intensity there is no drainage but some swelling left. Patient mainta ined on antibiotics in the form of cefepime and vancomycin with infectious disease following. Vascular surgery consulted in hopes for deep cultures with debridement and currently pending at this time. Patient is afebrile with no white count and other labs reviewed and within normal limits. Blood sugars controlled and will continue Accu-Cheks before meals and at bedtime and sliding scale. Patient continues to request when he can go home and is having increased anxiety having stay here. Will add low-dose Xanax as needed. Review of systems: Constitutional: No reports of fatigue, fever, or chills Cardiovascular: No reports of chest pain or palpitations Respiratory: No reports of shortness of breath or cough GI: No reports of nausea, vomiting, or diarrhea : No reports of dysuria or retention Neurovascular: No reports of weakness or numbness, reports some left-sided swelling has gone down in no drainage noted All medications have been reviewed PHYSICAL EXAMINATION: Patient is lying in the bed comfortably, no acute distress, awake alert and oriented.. Thin built, elderly appearing male HEENT: Normocephalic. Neck is supple. Pupils reactive. Nostrils clear. Oral cavity is moist. Neck reveals no JVD, carotid bruits, or thyromegaly. CHEST EXAMINATION: Trachea is central. Symmetrical expansion. Lung cherry clear to auscultation and percussion. CARDIAC: Normal S1, S2 with no gallops. No murmurs ABDOMEN: Soft. Bowel sounds present. Nontender. No organomegaly. No abdominal bruits. Extremities: reveal no edema. No clubbing or cyanosis. Swelling of the left second toe with small wound at the tip, no drainage. Redness and swelling has improved significantly on the dorsum with some minimal swelling at the toe Neurologically awake, alert, oriented x3 with well-coordinated movements. No focal deficits noted Skin: No rash Psychiatric: Cooperative. Non-suicidal, Musculoskeletal: No joint swelling or deformity. Normal range of motion. Assessment: Left second toe infection with pain and swelling and surrounding redness/cellulitis. Concerning for osteomyelitis as per foot x-ray. Prior history of injury to the left second toe about a year ago Hyperglycemia with uncontrolled diabetes type 2 Hypertension Prior history of smoking DVT prophylaxis with heparin subcu GI prophylaxis Full code Plan: Patient will be continued on IV antibiotics in the form of vancomycin and cefepime. Infectious disease following recommending vascular surgery consult which was placed in pending at this time for possible debridement with deep tissue cultures to determine discharge antibiotics Continue with pain management. Continue with Accu-Cheks before meals and at bedtime along with sliding scale, hemoglobin A1c is 7.2 Home medications reviewed resumed Follow-up culture reports and await vascular surgery consult Patient is extremely anxious to go home and have added low-dose anxiety medications as needed and discussed with the patient the importance of staying and receiving IV antibiotics and continuing treatment plan. Patient is high risk for leaving AGAINST MEDICAL ADVICE as patient has asked multiple times to go home Objective - Vital Signs Vital signs: Vital Signs Temp 98.4 F 12/25/22 12:47 Pulse 77 12/25/22 12:47 Resp 16 12/25/22 12:47 BP 138/75 12/25/22 12:47 Pulse Ox 98 12/25/22 12:47 FiO2 Intake & Output 12/25/22 12/25/22 12/26/22 06:59 18:59 06:59 Intake Total 475 700 Balance 475 700 Intake: Intake, IV Titration 700 Amount Cefepime 2 gm In Sodium 200 Chloride 0.9% 100 ml @ 25 mls/hr IVPB Q8HR [facility] Rx# :[id number] Vancomycin 1,500 mg In 500 Sodium Chloride 0.9% 500 ml 500 ml @ 167 mls/hr IVPB Q8H [facility] Rx#: [id number] Oral 475 Other: Voiding Method Toilet # Voids 2 - Labs CBC & Chem 7: 12/25/22 05:25 12/25/22 05:25 Labs: Abnormal Lab Results - Last 24 Hours (Table) 12/25/22 12/25/22 12/25/22 Range/Units 05:25 05:25 17:22 RBC 4.31 L (4.40-5.60) X 10*6/uL Hgb 12.3 L (13.0-17.0) d/dL Hct 39.0 L (39.6-50.0) % MCHC 31.5 L (32.0-37.0) d/dL Eosinophils # 0.48 H (0.04-0.35) X 10*3/uL Chloride 108 H (98-107) mmol/L BUN 21 H (9-20) mg/dL Creatinine 0.60 L (0.66-1.25) mg/dL Glucose 117 H (74-99) mg/dL POC Glucose (mg/dL) 143 H (70-110) mg/dL 12/25/22 Range/Units 20:30 RBC (4.40-5.60) X 10*6/uL Hgb (13.0-17.0) d/dL Hct (39.6-50.0) % MCHC (32.0-37.0) d/dL Eosinophils # (0.04-0.35) X 10*3/uL Chloride (98-107) mmol/L BUN (9-20) mg/dL Creatinine (0.66-1.25) mg/dL Glucose (74-99) mg/dL POC Glucose (mg/dL) 154 H (70-110) mg/dL Microbiology - Last 24 Hours (Table) 12/24/22 15:39 Gram Stain - Preliminary Toe - Left Second 12/24/22 15:49 Gram Stain - Preliminary Toe - Left Second 12/22/22 13:10 Blood Culture - Preliminary Blood 12/22/22 12:55 Blood Culture - Preliminary Blood
[2022-12-26] MEDS: VANCOMYCIN 1,500 MG in SODIUM CHLORIDE 0.9% 500 ML 500 ML IVPB SCH ×3 (06:00→22:02)
[2022-12-26 07:08] LABS: African American GFR (CKD) >90 (>60 ml/min/1.73 sqM); Anion Gap 3 mmol/L; Blood Urea Nitrogen 16 mg/dL (9-20); Calcium 8.8 mg/dL (8.4-10.2); Carbon Dioxide 28 mmol/L (22-30); Chloride 106 mmol/L (98-107); Glucose 139 mg/dL (74-99); Non-African American GFR(CKD) >90 (>60 ml/min/1.73 sqM); Potassium 4.6 mmol/L (3.5-5.1); Sodium 137 mmol/L (137-145)
[2022-12-26] MEDS: INSULIN ASPART (NovoLOG) 100 UNIT/ML VIAL SQ SCH ×4 (08:21→20:57)
[2022-12-26] MEDS: HYDROcodone/APAP 10-325MG 1 EACH TAB PO PRN ×3 (08:23→22:00)
[2022-12-26] MEDS: metFORMIN 500 MG TAB PO SCH (08:23)
[2022-12-26] MEDS: ALPRAZolam 0.25 MG TAB PO PRN ×2 (08:23→22:00)
[2022-12-26] MEDS: LOSARTAN 50 MG TAB PO SCH (08:23)
[2022-12-26 10:51] LABS: Basophils # (A) 0.05 X 10*3/uL (0.00-0.10); Basophils % (A) 0.7 %; Eosinophils # (A) 0.39 X 10*3/uL (0.04-0.35); Eosinophils % (A) 5.1 %; HCT 40.5 % (39.6-50.0); HGB 12.9 d/dL (13.0-17.0); Lymphocytes # (A) 1.47 X 10*3/uL (0.90-5.00); Lymphocytes % (A) 19.2 %; MCH 28.5 pg (27.0-32.0); MCHC 31.9 d/dL (32.0-37.0); MCV 89.6 FL (80.0-97.0); Mean Platelet Volume 9.3 FL (9.5-12.2); Monocytes # (A) 0.69 X 10*3/uL (0.20-1.00); NRBC Per 100 WBC 0 X 10*3/uL (0.00-0.01); Neutrophils # (A) 5.03 X 10*3/uL (1.80-7.70); Neutrophils % (A) 65.7 %; Platelet Count 322 X 10*3/uL (140-440); RBC 4.52 X 10*6/uL (4.40-5.60); RDW 12.7 % (11.5-14.5); WBC 7.65 X 10*3/uL (4.50-10.00)
[2022-12-26 12:09] LABS: Glucose,Whole Blood 160 mg/dL (70-110)
[2022-12-26 15:02] LABS: Prothrombin Time 10.8 sec (9.0-12.0)
[2022-12-26 17:04] LABS: Glucose,Whole Blood 110 mg/dL (70-110)
--- NOTE | 2022-12-26 17:19 | P.PN ---
Subjective Progress Note Date: 12/26/22 Principal diagnosis: Left second toe osteomyelitis Patient is a 67-year-old male with a past medical history of any for diabetes mellitus and hypertension previous history of smoking patient presenting the hospital with increasing pain and swelling to his left second toe which has been going on for a couple of months with recent worsening patient did have an abnormal x-ray concerning for bony destruction to the middle and distal phalanx concerning for Osteomyelitis. Patient did have a bedside debridement of the left second toe and cultures completed on 12/24/2022 On today's evaluation that is 12/26/2022, the patient continues to be afebrile, the patient is breathing comfortably , the patient denies chest pain or cough , the patient denies having any nausea or vomiting ,, no abdominal pain or diarrhea the patient pain and swelling to the left second toe has decreased in intensity, feeling better wants to go home Patient did have a white count of 7.65, creatinine 0.64 vancomycin trough of 12.2 blood culture negative Objective - Vital Signs Vital signs: Vital Signs Temp 98.7 F 12/26/22 07:14 Pulse 87 12/26/22 07:14 Resp 18 12/26/22 07:14 BP 133/79 12/26/22 07:14 Pulse Ox 99 12/26/22 07:14 FiO2 Intake & Output 12/25/22 12/26/22 12/26/22 18:59 06:59 18:59 Intake Total 700 Balance 700 Intake: Intake, IV Titration 700 Amount Cefepime 2 gm In Sodium 200 Chloride 0.9% 100 ml @ 25 mls/hr IVPB Q8HR [facility] Rx# :[id number] Vancomycin 1,500 mg In 500 Sodium Chloride 0.9% 500 ml 500 ml @ 167 mls/hr IVPB Q8H [facility] Rx#: [id number] Other: Voiding Method Toilet # Voids 2 - Exam GENERAL DESCRIPTION: An elderly male lying in bed in no distress RESPIRATORY SYSTEM: Unlabored breathing , decreased breath sounds at bases HEART: S1 S2 regular rate and rhythm , ABDOMEN: Soft , no tenderness EXTREMITIES: Left second toe swelling redness has improved no drainage - Labs CBC & Chem 7: 12/26/22 06:38 12/26/22 06:38 Labs: Abnormal Lab Results - Last 24 Hours (Table) 12/25/22 12/25/22 12/26/22 Range/Units 17:22 20:30 06:38 Hgb (13.0-17.0) d/dL MCHC (32.0-37.0) d/dL MPV (9.5-12.2) FL Eosinophils # (0.04-0.35) X 10*3/uL Creatinine 0.64 L (0.66-1.25) mg/dL Glucose 139 H (74-99) mg/dL POC Glucose (mg/dL) 143 H 154 H (70-110) mg/dL 12/26/22 Range/Units 06:38 Hgb 12.9 L (13.0-17.0) d/dL MCHC 31.9 L (32.0-37.0) d/dL MPV 9.3 L (9.5-12.2) FL Eosinophils # 0.39 H (0.04-0.35) X 10*3/uL Creatinine (0.66-1.25) mg/dL Glucose (74-99) mg/dL POC Glucose (mg/dL) (70-110) mg/dL Microbiology - Last 24 Hours (Table) 12/22/22 13:10 Blood Culture - Preliminary Blood 12/22/22 12:55 Blood Culture - Preliminary Blood 12/24/22 15:39 Gram Stain - Preliminary Toe - Left Second 12/24/22 15:49 Gram Stain - Preliminary Toe - Left Second Assessment and Plan (1) Toe osteomyelitis, left Current Visit: Yes Status: Acute Code(s): M86.9 - OSTEOMYELITIS, UNSPECIFIED SNOMED Code(s): 838561887 Plan: 1patient presented to hospital with increasing pain swelling redness and deformity of his left second toe with a previous history of trauma did have abnormal x-ray concerning for osteomyelitis 2patient is status post vascular surgery reevaluation along with debridement and deep cultures which are currently pending 3-patient to continue with cefepime and vancomycin while waiting for the culture to finalize to determine his discharge antibiotics, PICC line has been ordered case has been discussed with the DIRECTOR [employer] for admitting team Dictation was produced using [employer] dictation software. please excuse any grammatical, word or spelling errors. Time with Patient: Less than 30
[2022-12-26 20:06] LABS: Glucose,Whole Blood 129 mg/dL (70-110)
--- NOTE | 2022-12-26 23:49 | PN ---
PROGRESS NOTE This patient came with swelling and redness and scab formation, left foot second toe. We did the debridement and culture came back as a gram-positive cocci. The patient is on IV antibiotics under the care of Infectious Disease. Today, we have changed the dressing. The redness is less and we used Medihoney gel and this should be changed daily. MMODL / IJN: [id number] /
[2022-12-27] MEDS: CEFEPIME 2 GM in SODIUM CHLORIDE 0.9% 100 ML IVPB SCH ×2 (00:41→08:53)
--- NOTE | 2022-12-27 02:50 | P.PN ---
Subjective Progress Note Date: 12/26/22 Patient is a 67-year-old male with a known history of hypertension, diabetes type 2 [id number] presents to ER with complaints of swelling and pain in his left second toe and also surrounding redness which is worsening for the past 2 to 3 days. Patient states that he had an injury about a year ago which led to deformity to his left second toe. Pain is sharp 10 out of 10 in severity. Denies any purulent discharge. Patient has been afebrile at home. Denies any subjective fevers. No complaints of chest pain or shortness of breath. No nausea vomiting or abdominal pain or diarrhea. Foot x-ray in the ER showed osteolysis involving the medial and distal phalanx of the second toe. Correlate for osteomyelitis. Laboratory data showed WBC 11.6, hemoglobin 13.0 and platelets 323. Sodium 136, potassium 4.3 chloride 100 bicarb is 28 BUN 19 and creatinine 0.77 and blood sugar 250. CRP 3.0 liver enzymes are not elevated. 12/23/2022 Patient is seen in follow-up today reports pain of the left second toe has gone down in intensity there is no drainage but some swelling left. Patient main tained on antibiotics in the form of cefepime and vancomycin with infectious disease following. Vascular surgery consulted in hopes for deep cultures with debridement and currently pending at this time. Patient is afebrile with no white count and other labs reviewed and within normal limits. Blood sugars controlled and will continue Accu-Cheks before meals and at bedtime and sliding scale. Patient continues to request when he can go home and is having increased anxiety having stay here. Will add low-dose Xanax as needed. 12/26/2022 Patient is seen in follow-up today with vascular surgery and infectious disease following maintained on antibiotics. Patient is status post debridement of the left second toe with vascular surgery with deep tissue cultures obtained. Awaiting finalized cultures to determine discharge antibiotics. Discussed with infectious disease and will plan for PICC line and discuss further with social work about discharge planning and IV antibiotics to verify comfort as well. Patient to continue local wound care and vascular surgery to redress the surgical dressing today. Patient is afebrile report chest pain or shortness of breath. Patient tolerating diet with no reported nausea or vomiting. Patient is asking when he can go home. Review of systems: Constitutional: No reports of fatigue, fever, or chills Cardiovascular: No reports of chest pain or palpitations Respiratory: No reports of shortness of breath or cough GI: No reports of nausea, vomiting, or diarrhea : No reports of dysuria or retention Neurovascular: No reports of weakness or numbness, reports some left-sided swelling has gone down with no drainage noted All medications have been reviewed PHYSICAL EXAMINATION: Patient is lying in the bed, awake alert and oriented.. Thin built, elderly appearing male HEENT: Normocephalic. Neck is supple. Pupils reactive. Nostrils clear. Oral cavity is moist. Neck reveals no JVD, carotid bruits, or thyromegaly. CHEST EXAMINATION: Trachea is central. Symmetrical expansion. Lung cherry clear to auscultation and percussion. CARDIAC: Normal S1, S2 with no gallops. No murmurs ABDOMEN: Soft. Bowel sounds present. Nontender. No organomegaly. No abdominal bruits. Extremities: reveal no edema. No clubbing or cyanosis. Swelling of the left second toe with small wound at the tip, no drainage. Status post incision and drainage and surgical dressing is dry and intact, outer dorsum of the left foot currently covered with surgical dressing Neurologically awake, alert, oriented x3 with well-coordinated movements. No focal deficits noted Skin: No rash Psychiatric: Cooperative. Non-suicidal Musculoskeletal: No joint swelling or deformity. Normal range of motion. Assessment: Left second toe infection with pain and swelling and surrounding redness/cellulitis. Concerning for osteomyelitis as per foot x-ray. Status post incision and drainage of the left second toe with deep tissue cultures obtained Prior history of injury to the left second toe about a year ago Hyperglycemia with uncontrolled diabetes type 2 Hypertension Prior history of smoking DVT prophylaxis with heparin subcu GI prophylaxis Full code Plan: Patient will be continued on IV antibiotics with Infectious disease following Vascular surgery has evaluated the patient and scheduled to replace dressing as patient is status post incision and drainage of the left second toe with deep tissues obtained and sent for cultures. Currently pending at this time Will obtain PICC line and awaiting finalized cultures per ID recommendations and will follow-up with social work and discharge planning to verify coverage of antibiotics Continue with pain management. Continue with Accu-Cheks before meals and at bedtime along with sliding scale, hemoglobin A1c is 7.2 Home medications reviewed resumed Due to multiple complex medical issues, prognosis is guarded Possible discharge next 24-48 hours The impression and plan of care has been dictated by Shu Luz, Nurse Practitioner as directed. MD Dejon I have performed a history and examination and MDM of this patient, discussed the same with the dictator, and agree with the dictator's assessment and plan as written ,documented as a scribe. Based on total visit time, I have performed more than 50% of the visit. Objective - Vital Signs Vital signs: Vital Signs Temp 98.7 F 12/26/22 12:00 Pulse 98 12/26/22 12:00 Resp 18 12/26/22 12:00 BP 113/68 12/26/22 12:00 Pulse Ox 98 12/26/22 12:00 FiO2 Intake & Output 12/25/22 12/26/22 12/26/22 18:59 06:59 18:59 Intake Total 700 Balance 700 Intake: Intake, IV Titration 700 Amount Cefepime 2 gm In Sodium 200 Chloride 0.9% 100 ml @ 25 mls/hr IVPB Q8HR [facility] Rx# :[id number] Vancomycin 1,500 mg In 500 Sodium Chloride 0.9% 500 ml 500 ml @ 167 mls/hr IVPB Q8H [facility] Rx#: [id number] Other: Voiding Method Toilet # Voids 2 - Labs CBC & Chem 7: 12/26/22 06:38 12/26/22 06:38 Labs: Abnormal Lab Results - Last 24 Hours (Table) 12/25/22 12/25/22 12/26/22 Range/Units 17:22 20:30 06:38 Hgb (13.0-17.0) d/dL MCHC (32.0-37.0) d/dL MPV (9.5-12.2) FL Eosinophils # (0.04-0.35) X 10*3/uL Creatinine 0.64 L (0.66-1.25) mg/dL Glucose 139 H (74-99) mg/dL POC Glucose (mg/dL) 143 H 154 H (70-110) mg/dL 12/26/22 12/26/22 Range/Units 06:38 12:00 Hgb 12.9 L (13.0-17.0) d/dL MCHC 31.9 L (32.0-37.0) d/dL MPV 9.3 L (9.5-12.2) FL Eosinophils # 0.39 H (0.04-0.35) X 10*3/uL Creatinine (0.66-1.25) mg/dL Glucose (74-99) mg/dL POC Glucose (mg/dL) 160 H (70-110) mg/dL Microbiology - Last 24 Hours (Table) 12/22/22 13:10 Blood Culture - Preliminary Blood 12/22/22 12:55 Blood Culture - Preliminary Blood 12/24/22 15:39 Gram Stain - Preliminary Toe - Left Second 12/24/22 15:49 Gram Stain - Preliminary Toe - Left Second
[2022-12-27] MEDS ORDERED: VANCOMYCIN TROUGH DUE 1 EACH MISC MISCELLANE ONE (05:00)
[2022-12-27] MEDS: VANCOMYCIN 1,500 MG in SODIUM CHLORIDE 0.9% 500 ML 500 ML IVPB SCH ×2 (06:29→18:45)
[2022-12-27 06:42] LABS: African American GFR (CKD) >90 (>60 ml/min/1.73 sqM); Non-African American GFR(CKD) >90 (>60 ml/min/1.73 sqM)
[2022-12-27 07:23] LABS: Glucose,Whole Blood 111 mg/dL (70-110)
[2022-12-27] MEDS: INSULIN ASPART (NovoLOG) 100 UNIT/ML VIAL SQ SCH ×4 (08:12→21:13)
[2022-12-27] MEDS: metFORMIN 500 MG TAB PO SCH (08:53)
[2022-12-27] MEDS: LOSARTAN 50 MG TAB PO SCH (08:54)
[2022-12-27 11:53] LABS: Glucose,Whole Blood 109 mg/dL (70-110)
[2022-12-27 16:56] LABS: Glucose,Whole Blood 127 mg/dL (70-110)
[2022-12-27 20:22] LABS: Glucose,Whole Blood 198 mg/dL (70-110)
[2022-12-27] MEDS: HYDROcodone/APAP 10-325MG 1 EACH TAB PO PRN (21:12)
--- NOTE | 2022-12-27 22:57 | P.PN ---
Subjective Progress Note Date: 12/27/22 Principal diagnosis: Left second toe osteomyelitis Patient is a 67-year-old male with a past medical history of any for diabetes mellitus and hypertension previous history of smoking patient presenting the hospital with increasing pain and swelling to his left second toe which has been going on for a couple of months with recent worsening patient did have an abnormal x-ray concerning for bony destruction to the middle and distal phalanx concerning for Osteomyelitis. Patient did have a bedside debridement of the left second toe and cultures completed on 12/24/2022 On today's evaluation that is 12/27/2022, the patient denies having any fever or any chills, the patient is breathing comfortably, the patient denies having any chest pain shortness of breath or cough , Pt denies nausea vomiting no abdominal pain or diarrhea, the patient denies pain to his left second toe overall swelling redness has improved patient is feeling better and insisting on going home. Patient creatinine 0.66 local culture with coagulase-negative staph. Objective - Vital Signs Vital signs: Vital Signs Temp 98.6 F 12/27/22 07:18 Pulse 77 12/27/22 07:18 Resp 18 12/27/22 07:18 BP 120/69 12/27/22 07:18 Pulse Ox 98 12/27/22 07:18 FiO2 Intake & Output 12/26/22 12/27/22 12/27/22 18:59 06:59 18:59 Intake Total 1200 Balance 1200 Intake: Intake, IV Titration 1200 Amount Cefepime 2 gm In Sodium 200 Chloride 0.9% 100 ml @ 25 mls/hr IVPB Q8HR MONICA Rx# :[id number] Vancomycin 1,500 mg In 1000 Sodium Chloride 0.9% 500 ml 500 ml @ 167 mls/hr IVPB Q8H MONICA Rx#: [id number] Other: Voiding Method Toilet Toilet # Voids 3 3 - Exam GENERAL DESCRIPTION: An elderly male lying in bed in no distress RESPIRATORY SYSTEM: Unlabored breathing , decreased breath sounds at bases HEART: S1 S2 regular rate and rhythm , ABDOMEN: Soft , no tenderness EXTREMITIES: Left second toe swelling redness has improved no drainage - Labs CBC & Chem 7: 12/26/22 06:38 12/27/22 06:17 Labs: Abnormal Lab Results - Last 24 Hours (Table) 12/26/22 12/26/2212/26/23 Range/Units 06:38 12:00 20:05 Hgb 12.9 L (13.0-17.0) d/dL MCHC 31.9 L (32.0-37.0) d/dL MPV 9.3 L (9.5-12.2) FL Eosinophils # 0.39 H (0.04-0.35) X 10*3/uL POC Glucose (mg/dL) 160 H 129 H (70-110) mg/dL 12/27/22 Range/Units 07:21 Hgb (13.0-17.0) d/dL MCHC (32.0-37.0) d/dL MPV (9.5-12.2) FL Eosinophils # (0.04-0.35) X 10*3/uL POC Glucose (mg/dL) 111 H (70-110) mg/dL Microbiology - Last 24 Hours (Table) 12/24/22 15:49 Gram Stain - Preliminary Toe - Left Second Tissue Culture - Preliminary Coagulase Negative Staph 12/24/22 15:39 Gram Stain - Preliminary Toe - Left Second Wound Culture - Preliminary Coagulase Negative Staph Assessment and Plan (1) Toe osteomyelitis, left Current Visit: Yes Status: Acute Code(s): M86.9 - OSTEOMYELITIS, UNSPECIFIED SNOMED Code(s): 461510289 Plan: 1patient presented to hospital with increasing pain swelling redness and deformity of his left second toe with a previous history of trauma did have abnormal x-ray concerning for osteomyelitis 2patient is status post vascular surgery reevaluation along with debridement and deep cultures which are currently Growing coagulase-negative staph. 3we will place a PICC line patient was initially reluctant however after the detailed discussion he did agreed for it plan is for vancomycin x6-week discontinue cefepime was the patient get the PICC line he will be able to go home as outpatient antibiotic has been arranged for the patient and the close outpatient follow-up multiple questions concern answered Dictation was produced using [employer] software. please excuse any grammatical, word or spelling errors.
[2022-12-28 02:23] VITALS: RESP 16
--- NOTE | 2022-12-28 05:32 | P.PN ---
Subjective Progress Note Date: 12/27/22 Patient is a 67-year-old male with a known history of hypertension, diabetes type 2 [id number] presents to ER with complaints of swelling and pain in his left second toe and also surrounding redness which is worsening for the past 2 to 3 days. Patient states that he had an injury about a year ago which led to deformity to his left second toe. Pain is sharp 10 out of 10 in severity. Denies any purulent discharge. Patient has been afebrile at home. Denies any subjective fevers. No complaints of chest pain or shortness of breath. No nausea vomiting or abdominal pain or diarrhea. Foot x-ray in the ER showed osteolysis involving the medial and distal phalanx of the second toe. Correlate for osteomyelitis. Laboratory data showed WBC 11.6, hemoglobin 13.0 and platelets 323. Sodium 136, potassium 4.3 chloride 100 bicarb is 28 BUN 19 and creatinine 0.77 and blood sugar 250. CRP 3.0 liver enzymes are not elevated. 12/23/2022 Patient is seen in follow-up today reports pain of the left second toe has gone down in intensity there is no drainage but some swelling left. Patient main tained on antibiotics in the form of cefepime and vancomycin with infectious disease following. Vascular surgery consulted in hopes for deep cultures with debridement and currently pending at this time. Patient is afebrile with no white count and other labs reviewed and within normal limits. Blood sugars controlled and will continue Accu-Cheks before meals and at bedtime and sliding scale. Patient continues to request when he can go home and is having increased anxiety having stay here. Will add low-dose Xanax as needed. 12/26/2022 Patient is seen in follow-up today with vascular surgery and infectious disease following maintained on antibiotics. Patient is status post debridement of the left second toe with vascular surgery with deep tissue cultures obtained. Awaiting finalized cultures to determine discharge antibiotics. Discussed with infectious disease and will plan for PICC line and discuss further with social work about discharge planning and IV antibiotics to verify comfort as well. Patient to continue local wound care and vascular surgery to redress the surgical dressing today. Patient is afebrile report chest pain or shortness of breath. Patient tolerating diet with no reported nausea or vomiting. Patient is asking when he can go home. 12/27/2022 Patient is seen in follow-up this morning followed by infectious disease along with vascular surgery. Patient scheduled for PICC line and initially was reluctant although discuss further with infectious disease and is now agreeable as patient will require IV antibiotics for 6 weeks on discharge as there were concerns with osteomyelitis of the left foot. Outpatient antibiotics to be arranged and social work is following. Patient is afebrile with no reports of chest pain or shortness of breath. Patient is tolerating diet and denies any nausea or vomiting. Patient is extremely anxious to go home although awaiting cultures. Discussed with [facility] [facility] and cultures are not available until sometime later this evening. Review of systems: Constitutional: No reports of fatigue, fever, or chills Cardiovascular: No reports of chest pain or palpitations Respiratory: No reports of shortness of breath or cough GI: No reports of nausea, vomiting, or diarrhea : No reports of dysuria or retention Neurovascular: No reports of weakness or numbness, reports some left-sided foot swelling has gone down with no drainage noted All medications have been reviewed PHYSICAL EXAMINATION: Patient is lying in the bed, awake alert and oriented.. Thin built, elderly appearing male HEENT: Normocephalic. Neck is supple. Pupils reactive. Nostrils clear. Oral cavity is moist. Neck reveals no JVD, carotid bruits, or thyromegaly. CHEST EXAMINATION: Trachea is central. Symmetrical expansion. Lung cherry clear to auscultation and percussion. CARDIAC: Normal S1, S2 with no gallops. No murmurs ABDOMEN: Soft. Bowel sounds present. Nontender. No organomegaly. No abdominal bruits. Extremities: reveal no edema. No clubbing or cyanosis. Swelling of the left second toe with small wound at the tip, no drainage. Status post incision and drainage and surgical dressing is dry and intact, outer dorsum of the left foot currently covered with surgical dressing Neurologically awake, alert, oriented x3 with well-coordinated movements. No focal deficits noted Skin: No rash Psychiatric: Cooperative. Non-suicidal Musculoskeletal: No joint swelling or deformity. Normal range of motion. Assessment: Left second toe infection with pain and swelling and surrounding redness/cellulitis. Concerning for osteomyelitis as per foot x-ray. Status post incision and drainage of the left second toe with deep tissue cultures obtained Prior history of injury to the left second toe about a year ago Hyperglycemia with uncontrolled diabetes type 2 Hypertension Prior history of smoking DVT prophylaxis with heparin subcu GI prophylaxis Full code Plan: Patient will be continued on IV antibiotics with Infectious disease following. Plan is for PICC line patient will require 6 weeks of IV antibiotics. Patient initially reluctant to receive PICC line also after discussion with infectious disease patient is now willing and will be continued on 6 weeks of vancomycin. Social work following reaching for outpatient antibiotics. Nursing staff later reported there was an emergent case and lab in [facility] [place] unable to perform PICC line today and will be placed in the a[facility] in [place] And cultures will not be available until sometime later this evening. We'll follow-up for sensitivities Continue with pain management. Continue with Accu-Cheks before meals and at bedtime along with sliding scale, hemoglobin A1c is 7.2 Home medications reviewed resumed Due to multiple complex medical issues, prognosis is guarded Possible discharge next 24 hours The impression and plan of care has been dictated by Shu Luz, Nurse Practitioner as directed. MD Dejon I have performed a history and examination and MDM of this patient, discussed the same with the dictator, and agree with the dictator's assessment and plan as written ,documented as a scribe. Based on total visit time, I have performed more than 50% of the visit. Objective - Vital Signs Vital signs: Vital Signs Temp 98.7 F 12/28/22 01:13 Pulse 72 12/28/22 01:13 Resp 16 12/28/22 01:13 BP 127/63 12/28/22 01:13 Pulse Ox 99 12/28/22 01:13 FiO2 Intake & Output 12/27/22 12/27/22 12/28/22 06:59 18:59 06:59 Other: Voiding Method Toilet Toilet Toilet # Voids 3 2 - Labs CBC & Chem 7: 12/26/22 06:38 12/27/22 06:17 Labs: Abnormal Lab Results - Last 24 Hours (Table) 12/27/22 12/27/22 12/27/22 Range/Units 07:21 16:55 20:20 POC Glucose (mg/dL) 111 H 127 H 198 H (70-110) mg/dL Microbiology - Last 24 Hours (Table) 12/22/22 13:10 Blood Culture - Final Blood 12/22/22 12:55 Blood Culture - Final Blood
[2022-12-28 05:41] LABS: African American GFR (CKD) >90 (>60 ml/min/1.73 sqM); Non-African American GFR(CKD) >90 (>60 ml/min/1.73 sqM)
[2022-12-28] MEDS: VANCOMYCIN 1,500 MG in SODIUM CHLORIDE 0.9% 500 ML 500 ML IVPB SCH (06:02)
[2022-12-28 07:31] LABS: Glucose,Whole Blood 102 mg/dL (70-110)
[2022-12-28] MEDS: INSULIN ASPART (NovoLOG) 100 UNIT/ML VIAL SQ SCH (07:40)
[2022-12-28 08:00] VITALS: BP 134/64; PULSE 70; TEMP 98.6
[2022-12-28] MEDS ORDERED: LIDOCAINE 1% INJ 10MG/ML (20 ML MDV) SQ ONE (08:25)
[2022-12-28] MEDS: LOSARTAN 50 MG TAB PO SCH (08:51)
[2022-12-28] MEDS: metFORMIN 500 MG TAB PO SCH (08:51)
--- NOTE | 2022-12-28 09:19 | IR ---
PICC LINE PLACEMENT: HISTORY: Infection requiring long-term antibiotic therapy PROCEDURE: Ultrasound and fluoroscopic guidance of PICC line placement. COMPLICATIONS: None ANESTHESIA: 1. 1% Lidocaine locally. FINDINGS/TECHNIQUE: The procedure was explained to the patient. The risks, complications, benefits and alternatives were discussed and any questions were answered. Informed consent was obtained. The patient was placed supine on the fluoroscopic table and prepped and draped in the usual sterile fash ion. Utilizing a 21 gauge needle and sonographic and fluoroscopic guidance, access in the left basi lic vein was achieved and there is placement of a 0.018 guidewire. The vein is patent. A 4-F sheath was placed over the guidewire. The guidewire and dilator were removed and a 4-F. PICC line was plac ed through the sheath with the tip at the level of the SVC. The sheath was removed, the catheter was flushed and sutured into position. The patient was stable throughout the procedure and remained sta ble upon discharge from the Department of Radiology. The vein puncture was patent under ultrasound. A leroy scale image was obtained to document patency of the vein punctured. All elements of the maximal barrier technique were utilized. FLUOROSCOPY TIME: DAP 0.4943Gy cm2 IMPRESSION: Successful PICC line placement under ultrasound and fluoroscopic guidance.
[2022-12-28] MEDS ORDERED: DAPTOmycin 500 MG in SODIUM CHLORIDE 0.9% 50 ML IVPB SCH (11:00)
--- NOTE | 2022-12-29 10:38 | P.DS ---
Providers Date of admission: 12/22/22 15:29 Expected date of discharge: 12/28/22 Attending physician: Francy Babb Consults: 12/22/22 15:28 Consult Physician Urgent Consulting Provider: Matthew Pardo Consult Reason/Comments: Osteomyelitis, cellulitis left foot Do you want consulting provider notified?: Yes 12/22/22 23:26 Consult Physician Routine Consulting Provider: Juan Jose Almeida Consult Reason/Comments: left 2nd toe OM Do you want consulting provider notified?: Yes, Notify in am Primary care physician: Stated None Hospital Course: Final diagnosis Left second toe infection with pain and swelling and surrounding redness/cellulitis. Concerning for osteomyelitis as per foot x-ray. Status post incision and drainage of the left second toe with deep tissue cultures. cultures finalized with Staphylococcus epidermidis Prior history of injury to the left second toe about a year ago Hyperglycemia with uncontrolled diabetes type 2 Hypertension Prior history of smoking DVT prophylaxis with heparin subcu GI prophylaxis Full code Discharge disposition Patient is being discharged in a stable condition with guarded prognosis to home. Patient will follow-up with Dr. Mart Stephens to establish in the outpatient setting upon discharge. Patient is to continue with IV antibiotics and close outpatient follow-up with infectious disease Dr. Pardo as scheduled. Total time taken is greater than 35 minutes. Hospital course This is a 67-year-old male who was recently admitted with left second toe pain and infection with swelling concerning for osteomyelitis on x-ray. Patient evaluated and monitored closely with infectious disease and vascular surgery following status post debridement. Cultures of the debridement show Staphylococcus epidermidis and blood cultures are negative. patient was scheduled to receive a PICC line yesterday although staffing was unavailable due to emergent unforeseen circumstances and patient did receive a PICC line today and will be scheduled on outpatient IV antibiotics with infectious disease following closely. Patient was given resources on discharge as well for primary care providers to establish with. Patient has been cleared by consultations for discharge today. Please refer to other consultation notes for further HPI. Currently no reports of chest pain, shortness of breath, or palpitations. Patient is afebrile. No reports of nausea or vomiting and patient is tolerating diet. Patient will be discharged home today. Physical exam: Gen: This is a 67-year-old male who is awake, alert and oriented 3, thin built, well-developed HEENT: Head is atraumatic, normocephalic. Pupils equal, round. Sclerae is anicteric. NECK: Supple. No JVD. No lymphadenopathy. No thyromegaly. LUNGS: Clear to auscultation. No wheezes or rhonchi. No intercostal retractions. HEART: Regular rate and rhythm. No murmur. ABDOMEN: Soft. Bowel sounds are present. No masses. No tenderness. EXTREMITIES: No pedal edema. No calf tenderness. NEUROLOGICAL: Patient is awake, alert and oriented x3. Cranial nerves 2 through 12 are grossly intact. Please refer to medication reconciliation sheet for a list of medications. The impression and plan of care has been dictated by Shu Luz, Nurse Practitioner as directed. Dr. Angelo MD I have performed a history and examination and MDM of this patient, discussed the same with the dictator, and agree with the dictator's assessment and plan as written ,documented as a scribe. Based on total visit time, I have performed more than 50% of the visit. Patient Condition at Discharge: Stable Plan - Discharge Summary Discharge Rx Participant: No New Discharge Prescriptions: New Vancomycin 1,500 mg IVPB Q12H #84 each Continue metFORMIN HCL ER [Glucophage XR] 1,000 mg PO DAILY Losartan Potassium [Cozaar] 100 mg PO DAILY Discharge Medication List Losartan Potassium [Cozaar] 100 mg PO DAILY 09/02/22 [History] metFORMIN HCL ER [Glucophage XR] 1,000 mg PO DAILY 09/02/22 [History] Vancomycin 1,500 mg IVPB Q12H #84 each 12/28/22 [Rx] Follow up Appointment(s)/Referral(s): [facility],Infusion [NON-STAFF] - 1 Week Charmaine Preciado MD [STAFF PHYSICIAN] - 1 Week Matthew Pardo MD [STAFF PHYSICIAN] - 01/09/23 3:45 pm [facility] Vis[facility] Nurse, [NON-STAFF] - 1 Week Ambulatory/Diagnostic Orders: Basic Metabolic Panel [LAB.AMB] Location: None Selected C Reactive Protein [LAB.AMB] Location: None Selected Complete Blood Count w/diff [LAB.AMB] Location: None Selected Erythrocyte Sedimentation Rate [LAB.AMB] Location: None Selected Patient Instructions/Handouts: Cellulitis (GEN), Osteomyelitis (DC) Activity/Diet/Wound Care/Special Instructions: Wound care-Daily Medihoney to left foot 2nd toe, gauze, and secure with roll gauze. Discharge/Stand Alone Forms: Area PCPs Discharge Disposition: HOME WITH HOME HEALTH SERVICES
== END 2022-12-28 13:39 | disposition home health service (06) | DRG 623 ==
LOC: EC 11:28 → 5NMEDONC 15:29
PROVIDERS: ADMIT Internal Medicine; ATTEND Internal Medicine
PROC: 0JBR0ZZ Excision of Left Foot Subcutaneous Tissue and Fascia, Open Approach (ICD-10-PCS; principal; 2022-12-24)
PROC: 02HV33Z Insertion of Infusion Device into Superior Vena Cava, Percutaneous Approach (ICD-10-PCS; 2022-12-28)
DX: E11.69 Type 2 diabetes mellitus with other specified complication (principal); L03.116 Cellulitis of left lower limb; M86.9 Osteomyelitis, unspecified; E11.65 Type 2 diabetes mellitus with hyperglycemia; L03.032 Cellulitis of left toe; Z28.310 Unvaccinated for COVID-19; F41.9 Anxiety disorder, unspecified; H54.7 Unspecified visual loss; I10 Essential (primary) hypertension; Z87.891 Personal history of nicotine dependence; Z79.84 Long term (current) use of oral hypoglycemic drugs; Z79.899 Other long term (current) drug therapy; Z86.14 Personal history of Methicillin resistant Staphylococcus aureus infection; Z83.3 Family history of diabetes mellitus
CPT/HCPCS: 36415; 36573; 80048; 80053; 80202; 82565; 83036; 83605; 85025; 85610; 85652; 86140; 87040; 87070; 87075; 87077; 87186; 87205; 96365; 96366; 96368; 96375; 99285

== ENCOUNTER → 2023-03-31 | Outpatient (CLI) | payer BC, MEDICARE ==
--- NOTE | 2023-03-31 17:48 | CA ---
Transthoracic Echo Report Name: Juan F Hollingsworth Age: 68 Gender: M : 1955 Exam Date: 03/31/2023 15:41 Exam Location: [facility] Ht (in): 70 Wt (lb): 174 Ordering Physician: Marcelino Martinez MD Attending/Referring Phys: [id number], Juan Rehab Nurse Nadege Treadwell, BONILLA Procedure CPT: Indications: I25.2 OLD MYOCARDIAL INFARCTION Cardiac Hx: DM, SMOKER Technical Quality: Technically difficult study Contrast 1: Total Dose (mL): Contrast 2: Total Dose (mL): MEASUREMENTS (Male / Female) Normal Values 2D ECHO LV Diastolic Diameter PLAX 6.5 cm 4.2 - 5.9 / 3.9 - 5.3 cm LV Systolic Diameter PLAX 4.0 cm IVS Diastolic Thickness 1.0 cm 0.6 - 1.0 / 0.6 - 0.9 cm LVPW Diastolic Thickness 1.1 cm 0.6 - 1.0 / 0.6 - 0.9 cm LV Relative Wall Thickness 0.3 RV Internal Dim ED PLAX 3.6 cm LA Systolic Diameter LX 1.1 cm 3.0 - 4.0 / 2.7 - 3.8 cm LV Diastolic Volume MOD BP 109.7 cm??? 67 - 155 / 56 - 104 cm??? LV Systolic Volume MOD BP 51.3 cm??? 22 - 58 / 19 - 49 cm??? LV Ejection Fraction MOD BP 53.3 % >= 55 % LV Cardiac Index MOD BP 2592.4 cm???/min???m??? LV Diastolic Volume MOD 4C 157.1 cm??? LV Systolic Volume MOD 4C 99.9 cm??? LV Ejection Fraction MOD 4C 36.4 % LV Cardiac Index MOD 4C 2536.4 cm???/min???m??? LV Diastolic Length 4C 10.2 cm LV Systolic Length 4C 9.0 cm LV Diastolic Volume MOD 2C 169.4 cm??? LV Systolic Volume MOD 2C 99.3 cm??? LV Ejection Fraction MOD 2C 41.4 % LV Cardiac Index MOD 2C 3111.9 cm???/min???m??? LV Diastolic Length 2C 10.1 cm LV Systolic Length 2C 8.8 cm LA Volume 72.7 cm??? 18 - 58 / 22 - 52 cm??? LA Volume Index 36.7 cm???/m??? 16 - 28 cm???/m??? M-MODE Aortic Root Diameter MM 3.3 cm MV E Point Septal Separation 3.9 cm DOPPLER AV Peak Velocity 215.6 cm/s AV Peak Gradient 18.6 mmHg AV Mean Velocity 147.9 cm/s AV Mean Gradient 9.9 mmHg AV Velocity Time Integral 42.0 cm MV Area PHT 6.0 cm??? Mitral E Point Velocity 145.4 cm/s Mitral A Point Velocity 41.9 cm/s Mitral E to A Ratio 3.5 MV Deceleration Time 125.5 ms MV E' Velocity 3.9 cm/s Mitral E to MV E' Ratio 37.3 FINDINGS Left Ventricle Left ventricular ejection fraction is estimated at 40-45 %. Moderately increased left ventricular diastolic diameter. Moderately decreased left ventricular ejection fraction. Anteroapical and septal hypokinesis Right Ventricle Mild right ventricular dilatation. Unable to estimate the right ventricular systolic pressure. Right Atrium Normal right atrial size. Left Atrium Moderately increased left atrial volume. Mildly increased left atrial area. Mitral Valve Structurally normal mitral valve. mild mitral regurgitation. Aortic Valve Trileaflet aortic valve. Gradient on AOV 19 max mean 10 mmHg Tricuspid Valve Structurally normal tricuspid valve. No tricuspid stenosis, regurgitation or prolapse. Pulmonic Valve Pulmonic valve not well visualized. . No pulmonic regurgitation. Pericardium No pericardial effusion. Aorta Normal size aortic root and proximal ascending aorta. CONCLUSIONS Technically difficult study. Definity ECHO contrast used for improved visualization of the endocardial borders (inadequate visualization of two or more contiguous segments). Moderately impaired left ventricular systolic function with segmental wall motion abnormality Limited Doppler study was mild mitral regurgitation Previewed by: Dr. Terry Carter MD (Electronically Signed) Final Date: 31 March 2023 17:46
== END | disposition home or self-care (01) ==
LOC: RADECHMAIN 15:35
PROVIDERS: ATTEND Family Medicine
DX: I34.0 Nonrheumatic mitral (valve) insufficiency (principal); I25.2 Old myocardial infarction; I50.1 Left ventricular failure, unspecified
CPT/HCPCS: 93306; Q9957

== ENCOUNTER → 2023-12-25 | Outpatient (CLI) | payer BC ==
--- NOTE | 2023-12-25 12:19 | XR ---
EXAMINATION TYPE: XR lumbosacral spine min 4V DATE OF EXAM: 12/25/2023 11:30 AM CLINICAL INDICATION: Male, 68 years old with history of M54.41 Lumbago; [facility] COMPARISON: None TECHNIQUE: XR lumbosacral spine min 4V - Frontal, lateral , bilateral oblique and coned in L5-S1 late ral views of the spine. FINDINGS: No evidence of any acute osseous pathology. No evidence of loss of vertebral body height i s seen. There is normal alignment of the lumbar vertebral bodies. Mild scattered disc space narrowing . Multilevel marginal osteophyte formation throughout the visualized spine. There is facet joint arth ropathy throughout the spine. Moderate neural foraminal stenosis at L5-S1 with other areas of Scatter ed at least mild neural foraminal stenosis. Atherosclerosis of the arterial vasculature. IMPRESSION: 1. No acute fracture. 2. Moderate multilevel disc degeneration. [facility], , 12/25/2023 12:17 PM
== END | disposition home or self-care (01) ==
LOC: RADXRMAIN 11:06
PROVIDERS: ATTEND Family Medicine
DX: M54.51 Vertebrogenic low back pain
CPT/HCPCS: 72110